=== PATIENT | male | born 2000 | race Caucasian/White ===

== ENCOUNTER 2020-04-08 18:28 | Emergency (ER) | payer OTHER ==
[~2020-04-08] VITALS: Ht 180.3 cm; Wt 70.8 kg
[2020-04-08 19:02] LABS: ABSOLUTE EOSINOPHILS 0.2 thou/uL (0.0-0.7); ABSOLUTE LYMPHOCYTES 2.3 thou/uL (0.8-5.3); ABSOLUTE MONOCYTES 0.5 thou/uL (0.0-1.2); BASOPHILS 0.4 %; EOSINOPHILS 3.7 %; HEMATOCRIT 42.8 % (42.0-52.0); HEMOGLOBIN 14.9 gm/dL (14.0-18.0); LYMPHOCYTES 44.7 %; MCH 30.4 pg (26.0-34.0); MCHC 34.9 g/dL (28.0-37.0); MCV 87.2 fL (80.0-100.0); MONOCYTES 10.8 %; MPV 7.3 fl. (7.2-11.1); NUCLEATED RBCS 0 /100WBC; PLATELET COUNT* 192 thou/uL (150-400); POLYS 40.4 %; RBC 4.91 mil/uL (4.50-6.00); RDW-CV 13.6 % (10.5-14.5); WBC 5.1 thou/uL (4.0-11.0)
[2020-04-08 19:12] LABS: CALCIUM 9.4 mg/dL (8.5-10.1); CREATININE 1.1 mg/dL (0.6-1.3); POTASSIUM 3.7 mmol/L (3.5-5.1)
[2020-04-08 19:22] LABS: ALBUMIN 4.7 g/dL (3.4-5.0); TOTAL BILIRUBIN 0.5 mg/dL (<0.1-1.0); TOTAL PROTEIN 8.2 g/dL (6.4-8.2)
[2020-04-08] MEDS ORDERED: CARAFATE1 GM PO (21:40)
[2020-04-08] MEDS ORDERED: OMEPRAZOLE40 MG PO (21:40)
[2020-04-08 21:54] VITALS: BP 131/69
--- NOTE | 2020-04-09 11:36 | EKG ---
[place] [address] ELECTROCARDIOGRAM REPORT Name: GREG FLANNERY Room: [facility]#: [id number] Admission: 04/08/20 Attend Phys: Discharge: 04/08/20 Date of : 89 Date of Service: 04/08/20 1840 Report #: [id number] THIS REPORT FOR: //name// [facility] ED Test Date: 2020-04-08 Test Time: 18:40:19 Pat Name: GREG FLANNERY Department: Room: Gender: [employer] Superintendent: [facility] : 2000 Requested By: Anurag Brody Order Number: [id number] MD: Austen Mccall Measurements Intervals [place] Rate: 53 P: 13 AR: 130 QRS: 82 QRSD: 91 T: 56 QT: 406 QTc: 382 Interpretive Statements Sinus bradycardia S1,S2,S3 pattern ST elev, probable normal early repol pattern No previous ECG available for comparison Electronically Signed On 04-09-2020 11:36:22 CDT by Austen Mccall [email or web address] <ELECTRONICALLY SIGNED> By: Austen Mccall MD, [facility] 04/09/20 1136 1840 1840 Austen Mccall MD, [facility] /EPI
== END 2020-04-08 21:55 | disposition home or self-care (01) ==
LOC: M.ERS 18:28
PROVIDERS: Emergency Medicine Emergency Medical Services
DX: R07.89 Other chest pain (principal); R42 Dizziness and giddiness